=== PATIENT | female | born 1935 | race Caucasian/White ===

== ENCOUNTER → 2017-03-03 | Outpatient (CLI) | payer MEDICARE ==
[~2017-03-03] MED LIST: ASPI1TAB69 PO; CALC250T PO; CYCL1TAB29 PO; DICL1GEL7 TOPICAL; FENO54TA PO; HYDR12.56 PO; K-TA10TA PO; LISI40TA PO; LOVA40TA PO; NEXI20CA PO; OMEG100010
[2017-03-03 11:04] LABS: AUTOMATED NEUTROPHIL # 4.1 TH/MM3 (1.8-7.7); BASOPHIL # 0.1 TH/MM3 (0-0.2); BASOPHIL % 1.1 % (0.0-2.0); EOSINOPHIL # 0.3 TH/MM3 (0-0.4); EOSINOPHIL % 4.3 % (0.0-4.0); HEMATOCRIT 37.9 % (35.0-46.0); HEMO FLAGS DIFF FINAL; LYMPH % 27.7 % (9.0-44.0); LYMPHOCYTE # 1.9 TH/MM3 (1.0-4.8); MEAN CELL VOLUME 93.7 FL (80.0-100.0); MEAN CORPUSCULAR HEMOGLOBIN 30.9 PG (27.0-34.0); MONO % 7.3 % (0.0-8.0); NEUT % 59.6 % (16.0-70.0); PLATELET COUNT 370 TH/MM3 (150-450); RED BLOOD COUNT 4.04 MIL/MM3 (4.00-5.30); RED CELL DISTRIBUTION WIDTH 13.3 % (11.6-17.2); WHITE BLOOD COUNT 6.8 TH/MM3 (4.0-11.0)
[2017-03-03 11:17] LABS: ANION GAP 6 MEQ/L (5-15); AST (GOT) 30 U/L (15-37); BICARBONATE 31.4 MEQ/L (21.0-32.0); BLOOD UREA NITROGEN 17 MG/DL (7-18); CHLORIDE 103 MEQ/L (98-107); GLOMERULAR FILTRATION RATE 48 ML/MIN (>89); GLUCOSE,FASTING 93 MG/DL (74-99); POTASSIUM 3.8 MEQ/L (3.5-5.1); SODIUM (NA) 140 MEQ/L (136-145)
[2017-03-03 11:20] LABS: ALKALINE PHOSPHATASE 48 U/L (45-117); ALT (GPT) 28 U/L (10-53); HDL CHOLESTEROL 42.8 MG/DL (40.0-60.0); LDL CHOLESTEROL 132 MG/DL (0-99); TOTAL BILIRUBIN ADULT 0.4 MG/DL (0.2-1.0)
== END ==
LOC: PLAB 08:47
PROVIDERS: ATTEND Family Medicine
DX: E78.5 Hyperlipidemia, unspecified (principal); K21.9 Gastro-esophageal reflux disease without esophagitis
CPT/HCPCS: 36415; 80053; 80061; 85025

== ENCOUNTER → 2017-08-31 | Outpatient (CLI) | payer MEDICARE ==
[2017-08-31 13:54] LABS: ALBUMIN 3.4 GM/DL (3.4-5.0); ALT (GPT) 26 U/L (10-53); AST (GOT) 31 U/L (15-37); BICARBONATE 27.8 MEQ/L (21.0-32.0); BLOOD UREA NITROGEN 16 MG/DL (7-18); CALCIUM 9.2 MG/DL (8.5-10.1); CHLORIDE 105 MEQ/L (98-107); CHOLESTEROL 173 MG/DL (120-200); CREATININE 1.08 MG/DL (0.50-1.00); GLOMERULAR FILTRATION RATE 49 ML/MIN (>89); GLUCOSE,FASTING 97 MG/DL (74-99); SODIUM (NA) 140 MEQ/L (136-145)
[2017-08-31 13:57] LABS: ALKALINE PHOSPHATASE 46 U/L (45-117); CHOLESTEROL/ HDL RATIO 3.48 RATIO; HDL CHOLESTEROL 49.6 MG/DL (40.0-60.0); LDL CHOLESTEROL 90 MG/DL (0-99); TOTAL BILIRUBIN ADULT 0.3 MG/DL (0.2-1.0); TOTAL PROTEIN 6.9 GM/DL (6.4-8.2); TRIGLYCERIDES 166 MG/DL (42-150)
== END ==
LOC: PLAB 08:30
PROVIDERS: ATTEND Family Medicine
DX: E78.5 Hyperlipidemia, unspecified (principal)
CPT/HCPCS: 36415; 80053; 80061

== ENCOUNTER → 2018-02-22 | Outpatient (CLI) | payer MEDICARE ==
[~2018-02-22] MED LIST changes: -ASPI1TAB69 PO; +CYCL10TA PO; -CYCL1TAB29 PO
[2018-02-22 10:16] LABS: AUTOMATED NEUTROPHIL # 4.7 TH/MM3 (1.8-7.7); BASOPHIL # 0.1 TH/MM3 (0-0.2); BASOPHIL % 0.9 % (0.0-2.0); EOSINOPHIL # 0.3 TH/MM3 (0-0.4); EOSINOPHIL % 4.1 % (0.0-4.0); HEMATOCRIT 37.3 % (35.0-46.0); HEMOGLOBIN 12.5 GM/DL (11.6-15.3); MEAN CELL VOLUME 94.3 FL (80.0-100.0); MEAN CORPUSCULAR HEMOGLOBIN 31.6 PG (27.0-34.0); MEAN CORPUSCULAR HGB CONC 33.5 % (32.0-36.0); MEAN PLATELET VOLUME 7.9 FL (7.0-11.0); MONO % 6.5 % (0.0-8.0); MONOCYTE # 0.5 TH/MM3 (0-0.9); NEUT % 62.5 % (16.0-70.0); PLATELET COUNT 395 TH/MM3 (150-450); RED BLOOD COUNT 3.96 MIL/MM3 (4.00-5.30); RED CELL DISTRIBUTION WIDTH 13.4 % (11.6-17.2); WHITE BLOOD COUNT 7.6 TH/MM3 (4.0-11.0)
[2018-02-22 10:48] LABS: ALBUMIN 3.6 GM/DL (3.4-5.0); AST (GOT) 24 U/L (15-37); BICARBONATE 27.8 MEQ/L (21.0-32.0); BLOOD UREA NITROGEN 21 MG/DL (7-18); CALCIUM 9.8 MG/DL (8.5-10.1); CHLORIDE 106 MEQ/L (98-107); CREATININE 1.19 MG/DL (0.50-1.00); GLOMERULAR FILTRATION RATE 43 ML/MIN (>89); GLUCOSE,FASTING 103 MG/DL (74-99); SODIUM (NA) 141 MEQ/L (136-145)
[2018-02-22 10:49] LABS: ALT (GPT) 25 U/L (10-53); CHOLESTEROL 199 MG/DL (120-200)
[2018-02-22 10:52] LABS: ALKALINE PHOSPHATASE 48 U/L (45-117); CHOLESTEROL/ HDL RATIO 4.68 RATIO; HDL CHOLESTEROL 42.5 MG/DL (40.0-60.0); LDL CHOLESTEROL 119 MG/DL (0-99); TOTAL BILIRUBIN ADULT 0.4 MG/DL (0.2-1.0); TOTAL PROTEIN 7.3 GM/DL (6.4-8.2); TRIGLYCERIDES 186 MG/DL (42-150)
== END ==
LOC: PLAB 08:36
PROVIDERS: ATTEND Family Medicine
DX: E78.00 Pure hypercholesterolemia, unspecified (principal); D64.9 Anemia, unspecified
CPT/HCPCS: 36415; 80053; 80061; 85025